=== PATIENT | male | born 1980 | race African-American/Black ===

== ENCOUNTER 2024-08-19 10:56 | Emergency (ER) | payer MEDICAID, OTHER ==
[~2024-08-19] VITALS: Ht 182.9 cm; Wt 82.0 kg
[2024-08-19 11:23] VITALS: O2SAT 96
[2024-08-19] MEDS: KETOROLAC 15MG/ML VIAL IM NR (14:45)
[2024-08-19 16:35] VITALS: BP 122/68; PULSE 78; RESP 16; TEMP 36.89184; O2SAT 96
== END 2024-08-19 16:35 | disposition home or self-care (01) ==
LOC: ER 11:17
DX: M25.571 Pain in right ankle and joints of right foot (principal); D16.21 Benign neoplasm of long bones of right lower limb; E11.9 Type 2 diabetes mellitus without complications; R51.9 Headache, unspecified
CPT/HCPCS: 72070; 72100; 72170; 73560; 73610; 73630; 70450; 72125; 96372; 99291; J1885; A4663; Z7610; A4606